=== PATIENT | male | born 1965 | race Caucasian/White ===

== ENCOUNTER 2024-07-06 13:40 | Emergency (ER) | payer OTHER ==
[~2024-07-06] VITALS: Ht 172.7 cm; Wt 113.4 kg
[2024-07-06] MEDS ORDERED: CLINDAMYCIN HCL 300 MG CAPSULE PO ONE (14:30)
[2024-07-06] MEDS ORDERED: Acetaminophen/Hydrocodone HP 10/325 PO ONE (14:30)
[2024-07-06 14:45] LABS: BUN 11 mg/dl (9-23); CHLORIDE 102 mmol/L (98-107); POTASSIUM 4.6 mmol/L (3.4-5.1)
[2024-07-06] MEDS ORDERED: CLEOCIN HCL300 MG PO (14:49)
[2024-07-06 15:13] LABS: BASO # 0.1 10*3/uL (0.0-0.1); BASO % 0.5 % (0.0-1.0); EOS # 0.2 10*3/uL (0.0-0.4); EOS % 1.8 % (1.0-4.0); MEAN CELL VOLUME 82.4 fl (80.0-94.0); MEAN CORPUSCULAR HGB 26.9 pg (27.0-31.0); MEAN CORPUSCULAR HGB CONC 32.6 g/dl (33.0-37.0); MEAN PLATELET VOLUME 9.8 fl (9.6-12.3); MONO % 11.3 % (3.0-9.0); NEUT % 65.5 % (47.0-73.0); PLATELET COUNT AUTOMATED 233 10*3/uL (130-400); RED CELL DISTRI WIDTH 16.4 % (0-14.5); WHITE BLOOD COUNT 9.2 10*3/uL (4.8-10.8)
== END 2024-07-06 15:35 | disposition home or self-care (01) ==
LOC: ED 13:40
PROVIDERS: Nurse Practitioner Family
DX: S02.5XXA Fracture of tooth (traumatic), initial encounter for closed fracture (principal); R22.0 Localized swelling, mass and lump, head; E11.9 Type 2 diabetes mellitus without complications; X58.XXXA Exposure to other specified factors, initial encounter; Y93.89 Activity, other specified; Y92.89 Other specified places as the place of occurrence of the external cause; Y99.8 Other external cause status

== ENCOUNTER 2025-08-09 16:16 | Emergency (ER) | payer OTHER ==
[~2025-08-09] VITALS: Ht 172.7 cm; Wt 113.4 kg
[~2025-08-09 16:16] MED LIST: ADVAIR 250/501 EA INH; AIRSUPRA 90-810.7 GM INH; ALLEGRA ALLERG180 M2 PO; CLEOCIN HCL300 MG PO; COREG3.125 MG PO; CYCLOBENZAPRINE10 MG PO; DEPO-TESTOS200 MG/ML IM; KLOR-CON 1010 ME1 PO; LANTUS100 UNIT/1 SQ; METFORMIN HCL500 M3 PO; Mysoline50 MG PO; NEURONTIN400 MG PO; OZEMPIC0.25 MG/03 SQ; PAXIL20 M1 PO; PREDNISONE10 MG PO; PROTONIX IV40 MG PO; RIZATRIPTAN10 M1 PO; SIMVASTATIN80 MG PO
[2025-08-09] MEDS ORDERED: PENICILLIN VK500 MG PO (16:57)
[2025-08-09] MEDS ORDERED: NAPROSYN500 MG PO (16:57)
[2025-08-09] MEDS ORDERED: Acetaminophen/Oxycodone 5 MG/325 MG TABLET PO ONE (17:00)
[2025-08-09] MEDS ORDERED: PENICILLIN V POTASSIUM 500 MG TAB PO ONE (17:00)
== END 2025-08-09 17:46 | disposition home or self-care (01) ==
LOC: ED 16:16
DX: K04.7 Periapical abscess without sinus (principal); E11.9 Type 2 diabetes mellitus without complications; F41.9 Anxiety disorder, unspecified; I10 Essential (primary) hypertension; J45.909 Unspecified asthma, uncomplicated; K21.9 Gastro-esophageal reflux disease without esophagitis; Z90.49 Acquired absence of other specified parts of digestive tract

== ENCOUNTER 2025-08-11 22:09 | Emergency (ER) | payer OTHER ==
[~2025-08-11] VITALS: Ht 177.8 cm; Wt 145.1 kg
[~2025-08-11 22:09] MED LIST changes: +NAPROSYN500 MG PO; +PENICILLIN VK500 MG PO
[2025-08-12] MEDS ORDERED: AMOXICILLIN500 M2 PO (01:03)
[2025-08-12] MEDS ORDERED: AMOXICILLIN 500 MG CAP PO ONE (01:05)
[2025-08-12] MEDS ORDERED: Acetaminophen/Oxycodone 5 MG/325 MG TABLET PO ONE (01:05)
== END 2025-08-12 01:38 | disposition home or self-care (01) ==
LOC: ED 22:09
DX: K04.7 Periapical abscess without sinus (principal); K02.9 Dental caries, unspecified; F41.9 Anxiety disorder, unspecified; J44.89 Other specified chronic obstructive pulmonary disease; E11.9 Type 2 diabetes mellitus without complications; K21.9 Gastro-esophageal reflux disease without esophagitis; I10 Essential (primary) hypertension; Z96.652 Presence of left artificial knee joint; Z98.890 Other specified postprocedural states; Z90.49 Acquired absence of other specified parts of digestive tract